=== PATIENT | female | born 1940 | race Caucasian/White ===

== ENCOUNTER 2017-10-22 12:11 | Inpatient (IN) | payer MEDICARE, BC ==
[~2017-10-22] VITALS: Ht 160 cm; Wt 98.0 kg
[~2017-10-22 12:11] MED LIST: APIX5TAB3 PO; BUTA1CAP43 PO; ENOX40SY7 SUBCUT; FURO40TA4 PO; LANTUS SQ; LOSA50TA3 PO; METO50TA17 PO; NITR0.4T51 SL; OXYC-615 PO; RANI300T7 PO; VAL5T PO
[2017-10-22] MEDS ORDERED: normal saline 1000ML IV soln IVB ONE (13:00)
[2017-10-22] MEDS ORDERED: ondansetron/PF 4mg/2ml inj IV ONE (13:00)
[2017-10-22 13:08] LABS: BASOPHILS # (AUTO) 0.1 X10'3 (0-0.2); BASOPHILS % (AUTO) 0.8 % (0-1); EOSINOPHILS # (AUTO) 0.3 X10'3 (0-0.9); EOSINOPHILS % (AUTO) 2.9 % (0-6); HEMATOCRIT 41.2 % (35.0-45.0); HEMOGLOBIN 14.1 g/dl (12.0-16.0); LYMPHOCYTES # (AUTO) 3.1 X10'3 (1.1-4.8); LYMPHOCYTES % (AUTO) 27.9 % (21-51); MEAN CORPUSCULAR HEMOGLOBIN 28.2 PG (27.0-31.0); MEAN CORPUSCULAR HGB CONC 34.3 % (33.0-36.5); MEAN CORPUSCULAR VOLUME 82.4 FL (78-98); MEAN PLATELET VOLUME 7.7 FL (7.4-10.4); MONOCYTES # (AUTO) 0.6 X10'3 (0-0.9); MONOCYTES % (AUTO) 5.7 % (2-12); NEUTROPHILS # (AUTO) 6.9 X10'3 (1.8-7.7); NEUTROPHILS % (AUTO) 62.7 % (42-75); PLATELET COUNT 227 X10'3 (140-440); RED BLOOD COUNT 5.01 X10'6 (4.20-5.60); RED CELL DISTRIBUTION WIDTH 15.1 % (11.5-14.5)
[2017-10-22 13:18] LABS: INR 1.1 INR; PROTHROMBIN TIME 11.4 SECONDS (9.0-12.0)
[2017-10-22 13:26] LABS: ALANINE AMINOTRANSFERASE 34 U/L (12-78); ALBUMIN 3.3 G/DL (3.4-5.0); ALBUMIN/GLOBULIN RATIO 0.8 (1.1-1.5); ALKALINE PHOSPHATASE 142 IU/L (46-116); ANION GAP 9 (8-16); ASPARTATE AMINO TRANSFERASE 21 U/L (10-37); BILIRUBIN,TOTAL 0.5 MG/DL (0.1-1.0); BLOOD UREA NITROGEN 14 MG/DL (7-18); BUN/CREATININE RATIO 15.1 (6.6-38.0); CALCIUM 9.1 MG/DL (8.5-10.1); CHLORIDE 104 MMOL/L (99-107); CREATININE 0.93 MG/DL (0.40-0.90); GLUCOSE 115 MG/DL (70-104); SODIUM 141 MMOL/L (135-145); TOTAL CARBON DIOXIDE 28.2 MMOL/L (24-32); TOTAL PROTEIN 7.4 G/DL (6.4-8.2); eGFR 58 ML/MIN
[2017-10-22] MEDS ORDERED: potassium Cl 40MEQ/NS 500ml 500 ML IV PRN ×2 (14:45)
[2017-10-22] MEDS ORDERED: ondansetron/PF 4mg/2ml inj IV PRN (14:45)
[2017-10-22] MEDS ORDERED: magnesium 2GM in 50ml NS 50 ML IV PRN (14:45)
[2017-10-22] MEDS ORDERED: ipratropium/albuterol 3ml nebule NEB PRN (14:45)
[2017-10-22] MEDS ORDERED: magnesium 4gm in 100ml NS 100 ML IV PRN (14:45)
[2017-10-22] MEDS ORDERED: metroNIDAZOLE-Flagyl 500mg/NS 100 ML IV STA (14:54)
[2017-10-22] MEDS: normal saline 1000ml 1,000 ML IV SCH (15:22)
[2017-10-22] MEDS ORDERED: dextrose ORAL solution 15 GM/59 ML bottle PO PRN ×2 (16:00)
[2017-10-22] MEDS ORDERED: glucagon, human recombinant 1mg kit SUBCUT PRN (16:00)
[2017-10-22] MEDS ORDERED: insulin Lispro (HumaLOG) vial - multi-dose SQ SCH (16:00)
[2017-10-22] MEDS ORDERED: MESSAGE TO PHARMACY PO ONE (16:00)
[2017-10-22] MEDS ORDERED: dextrose 50%-water 50ml dispensing syringe IV PRN ×2 (16:00)
[2017-10-22] MEDS ORDERED: normal saline 1000ml 1,000 ML IV SCH (16:15)
[2017-10-22] MEDS ORDERED: GABA-532 (17:10)
[2017-10-22] MEDS ORDERED: POTA20TA19 (17:10)
[2017-10-22] MEDS ORDERED: ZAR2.5T PO (17:11)
[2017-10-22] MEDS: diatr meglu/diatrizoate 30ml oral sol.-(3 dose) bottle PO SCH (21:00)
[2017-10-22] MEDS: metoprolol tartrate 50mg tablet PO SCH (21:22)
[2017-10-22] MEDS: apixaban 5mg tablet PO SCH (21:23)
[2017-10-22] MEDS ORDERED: gabapentin 300mg capsule PO ONE (22:00)
[2017-10-22 22:50] LABS: GLUCOSE, URINE NEGATIVE (Neg); KETONES,URINE TRACE mg/dl (Neg); LEUKOCYTE ESTERASE ,URINE NEGATIVE (Neg); NITRITES, URINE NEGATIVE (Neg); OCCULT BLOOD,URINE NEGATIVE (Neg); PH,URINE 5.5 (4.8-8.0); PROTEIN,URINE TRACE mg/dl (Neg); UROBILINOGEN,URINE 0.2 E.U/dL (0.2-1.0)
[2017-10-22 23:05] LABS: UA COLLECTION TYPE CLN CATCH MIDSTREAM
[2017-10-22 23:07] LABS: CLARITY,URINE SLIGHTLY CLOUDY (Clear); COLOR,URINE DARK YELLOW (Yellow)
[2017-10-22 23:08] LABS: BACTERIA,URINE 3+ /HPF (Neg); MUCUS STRANDS FEW /LPF (Neg); RBC,URINE 0-2 /HPF (0-2); SQUAMOUS EPITHELIAL CELL,UR MODERATE /LPF (FEW)
[2017-10-22 23:09] LABS: HYALINE CASTS 0-3 /LPF (NEGATIVE)
[2017-10-22] MEDS ORDERED: insulin glargine (Lantus) pen - multi-dose SQ ONE (23:44)
[2017-10-22] MEDS: insulin glargine (Lantus) pen - multi-dose SQ SCH (23:53)
[2017-10-23] MEDS: normal saline 1000ml 1,000 ML IV SCH ×3 (00:44→18:32)
[2017-10-23 06:34] LABS: BASOPHILS % (AUTO) 0.5 % (0-1); EOSINOPHILS # (AUTO) 0.4 X10'3 (0-0.9); EOSINOPHILS % (AUTO) 5.8 % (0-6); HEMATOCRIT 35.3 % (35.0-45.0); HEMOGLOBIN 12.1 g/dl (12.0-16.0); LYMPHOCYTES # (AUTO) 2.1 X10'3 (1.1-4.8); LYMPHOCYTES % (AUTO) 29.5 % (21-51); MEAN CORPUSCULAR HEMOGLOBIN 28.2 PG (27.0-31.0); MEAN CORPUSCULAR HGB CONC 34.4 % (33.0-36.5); MEAN PLATELET VOLUME 7.2 FL (7.4-10.4); MONOCYTES # (AUTO) 0.5 X10'3 (0-0.9); MONOCYTES % (AUTO) 7.1 % (2-12); NEUTROPHILS % (AUTO) 57.1 % (42-75); PLATELET COUNT 188 X10'3 (140-440); RED CELL DISTRIBUTION WIDTH 15.1 % (11.5-14.5)
[2017-10-23 06:51] LABS: ALANINE AMINOTRANSFERASE 28 U/L (12-78); ALBUMIN 2.6 G/DL (3.4-5.0); ALBUMIN/GLOBULIN RATIO 0.8 (1.1-1.5); ALKALINE PHOSPHATASE 111 IU/L (46-116); ANION GAP 8 (8-16); ASPARTATE AMINO TRANSFERASE 15 U/L (10-37); BILIRUBIN,TOTAL 0.4 MG/DL (0.1-1.0); BLOOD UREA NITROGEN 14 MG/DL (7-18); BUN/CREATININE RATIO 17.9 (6.6-38.0); CALCIUM 7.9 MG/DL (8.5-10.1); CHLORIDE 109 MMOL/L (99-107); CHOL/HDL RATIO 3.2 (0.00-4.99); CHOLESTEROL 120 MG/DL (0-200); CREATININE 0.78 MG/DL (0.40-0.90); GLUCOSE 91 MG/DL (70-104); HDL CHOLESTEROL 38 MG/DL (35-60); LDL CHOLESTEROL 66 MG/DL (50-100); MAGNESIUM 1.7 MG/DL (1.5-2.4); POTASSIUM 3.3 MMOL/L (3.5-5.1); SODIUM 143 MMOL/L (135-145); TRIGLYCERIDES 75 MG/DL (20-135); eGFR 71 ML/MIN
[2017-10-23] MEDS: diatr meglu/diatrizoate 30ml oral sol.-(3 dose) bottle PO SCH (07:00)
[2017-10-23] MEDS: enoxaparin 40mg/0.4ml syringe SQ SCH (07:29)
[2017-10-23] MEDS: furosemide 40mg tablet PO SCH (08:00)
[2017-10-23] MEDS: apixaban 5mg tablet PO SCH ×2 (08:03→20:16)
[2017-10-23] MEDS: metoprolol tartrate 50mg tablet PO SCH ×2 (08:03→20:16)
[2017-10-23] MEDS: K and/or MAG REPLACEMENT MC SCH (08:58)
[2017-10-23] MEDS ORDERED: diazepam 5mg tablet PO PRN (10:00)
[2017-10-23] MEDS ORDERED: iohexol 300mg/ml 100ml inj. ONE (10:03)
[2017-10-23 11:53] VITALS: BP 106/52
[2017-10-23] MEDS ORDERED: butalbital/acetaminophen/caffeine (Fioricet) tablet PO PRN (12:00)
[2017-10-23 20:00] VITALS: BP 128/70
[2017-10-23] MEDS: insulin glargine (Lantus) pen - multi-dose SQ SCH (20:22)
[2017-10-23] MEDS ORDERED: insulin glargine (Lantus) pen - multi-dose SQ SCH (21:00)
[2017-10-23] MEDS ORDERED: gabapentin 300mg capsule PO SCH (23:06)
[2017-10-24] VITALS: BP 141/71
[2017-10-24] MEDS: normal saline 1000ml 1,000 ML IV SCH (03:45)
[2017-10-24 07:42] VITALS: BP 126/69
[2017-10-24] MEDS ORDERED: metolazone 2.5mg tablet PO SCH (08:00)
[2017-10-24] MEDS ORDERED: losartan 50mg tablet PO SCH (08:00)
[2017-10-24] MEDS: furosemide 40mg tablet PO SCH (08:00)
[2017-10-24] MEDS: K and/or MAG REPLACEMENT MC SCH (08:00)
[2017-10-24] MEDS: enoxaparin 40mg/0.4ml syringe SQ SCH (08:00)
[2017-10-24] MEDS: apixaban 5mg tablet PO SCH (08:25)
[2017-10-24] MEDS: metoprolol tartrate 50mg tablet PO SCH (08:25)
[2017-10-24 09:01] LABS: BASOPHILS % (AUTO) 0.4 % (0-1); EOSINOPHILS # (AUTO) 0.3 X10'3 (0-0.9); EOSINOPHILS % (AUTO) 4.4 % (0-6); HEMATOCRIT 35.7 % (35.0-45.0); HEMOGLOBIN 12.2 g/dl (12.0-16.0); LYMPHOCYTES # (AUTO) 2.2 X10'3 (1.1-4.8); LYMPHOCYTES % (AUTO) 30.5 % (21-51); MEAN CORPUSCULAR HEMOGLOBIN 28.1 PG (27.0-31.0); MEAN CORPUSCULAR HGB CONC 34.1 % (33.0-36.5); MEAN CORPUSCULAR VOLUME 82.4 FL (78-98); MEAN PLATELET VOLUME 7.6 FL (7.4-10.4); MONOCYTES # (AUTO) 0.5 X10'3 (0-0.9); MONOCYTES % (AUTO) 6.4 % (2-12); NEUTROPHILS # (AUTO) 4.2 X10'3 (1.8-7.7); NEUTROPHILS % (AUTO) 58.3 % (42-75); PLATELET COUNT 206 X10'3 (140-440); RED BLOOD COUNT 4.34 X10'6 (4.20-5.60); RED CELL DISTRIBUTION WIDTH 15.3 % (11.5-14.5); WHITE BLOOD COUNT 7.3 X10'3 (4.5-11.0)
[2017-10-24 09:16] LABS: ALANINE AMINOTRANSFERASE 45 U/L (12-78); ALBUMIN 2.8 G/DL (3.4-5.0); ALBUMIN/GLOBULIN RATIO 0.8 (1.1-1.5); ALKALINE PHOSPHATASE 173 IU/L (46-116); ANION GAP 9 (8-16); ASPARTATE AMINO TRANSFERASE 34 U/L (10-37); BILIRUBIN,TOTAL 0.4 MG/DL (0.1-1.0); BLOOD UREA NITROGEN 13 MG/DL (7-18); BUN/CREATININE RATIO 16.7 (6.6-38.0); CALCIUM 8.1 MG/DL (8.5-10.1); CHLORIDE 107 MMOL/L (99-107); CREATININE 0.78 MG/DL (0.40-0.90); GLUCOSE 178 MG/DL (70-104); MAGNESIUM 1.6 MG/DL (1.5-2.4); POTASSIUM 3.9 MMOL/L (3.5-5.1); SODIUM 141 MMOL/L (135-145); TOTAL CARBON DIOXIDE 24.7 MMOL/L (24-32); TOTAL PROTEIN 6.5 G/DL (6.4-8.2); eGFR 71 ML/MIN
== END 2017-10-24 13:20 | disposition home or self-care (01) | DRG 392 ==
LOC: ER 12:11 → ED HOLD 14:44 → EDBEDREQ 10-23 07:00 → MED 3N 10-23 11:46
PROVIDERS: ADMIT Family Medicine; ATTEND Family Medicine
DX: A08.4 Viral intestinal infection, unspecified (principal); I48.2 Chronic atrial fibrillation; Z86.74 Personal history of sudden cardiac arrest; E11.9 Type 2 diabetes mellitus without complications; I10 Essential (primary) hypertension; E78.5 Hyperlipidemia, unspecified; J44.9 Chronic obstructive pulmonary disease, unspecified; K42.9 Umbilical hernia without obstruction or gangrene; K57.30 Diverticulosis of large intestine without perforation or abscess without bleeding; Z90.49 Acquired absence of other specified parts of digestive tract; Z90.710 Acquired absence of both cervix and uterus; Z95.0 Presence of cardiac pacemaker; Z88.6 Allergy status to analgesic agent; Z88.1 Allergy status to other antibiotic agents; Z88.5 Allergy status to narcotic agent; Z88.0 Allergy status to penicillin; Z88.2 Allergy status to sulfonamides; Z88.8 Allergy status to other drugs, medicaments and biological substances; Z79.01 Long term (current) use of anticoagulants; Z79.899 Other long term (current) drug therapy; Z85.3 Personal history of malignant neoplasm of breast; Z86.711 Personal history of pulmonary embolism; Z82.3 Family history of stroke; Z83.3 Family history of diabetes mellitus
CPT/HCPCS: 36415; 74176; 74177; 80053; 80061; 81001; 82272; 82948; 83036; 83735; 85025; 85610; 87045; 87046; 87070; 87088; 87324; 87449; 89055; 94667; 94760; 96360; 99285; A6449; J1650; J1815; J3480; J3490; J7030; Q9963; Q9967

== ENCOUNTER 2021-06-18 11:50 | Inpatient (IN) | payer MEDICARE, BC ==
[~2021-06-18] VITALS: Ht 160 cm; Wt 92.5 kg
[~2021-06-18 11:50] MED LIST changes: +DIAZ5TAB22 PO; -ENOX40SY7 SUBCUT; -FURO40TA4 PO; +GABA-532 PO; -NITR0.4T51 SL; -OXYC-615 PO; +POTA-207; -RANI300T7 PO; -VAL5T PO; +ZAR2.5T PO
[2021-06-18 12:59] LABS: BASOPHILS # (AUTO) 0.1 X10'3 (0-0.2); BASOPHILS % (AUTO) 1.1 % (0-1); EOSINOPHILS # (AUTO) 0.4 X10'3 (0-0.9); EOSINOPHILS % (AUTO) 5.3 % (0-6); HEMOGLOBIN 14.3 g/dl (12.0-16.0); LYMPHOCYTES # (AUTO) 2.3 X10'3 (1.1-4.8); LYMPHOCYTES % (AUTO) 30.3 % (21-51); MEAN CORPUSCULAR HEMOGLOBIN 29.1 PG (27.0-31.0); MEAN CORPUSCULAR VOLUME 85.7 FL (78-98); MEAN PLATELET VOLUME 7.3 FL (7.4-10.4); MONOCYTES # (AUTO) 0.7 X10'3 (0-0.9); MONOCYTES % (AUTO) 8.8 % (2-12); NEUTROPHILS # (AUTO) 4.2 X10'3 (1.8-7.7); NEUTROPHILS % (AUTO) 54.5 % (42-75); PLATELET COUNT 220 X10'3 (140-440); RED CELL DISTRIBUTION WIDTH 15.2 % (11.5-14.5); WHITE BLOOD COUNT 7.7 X10'3 (4.5-11.0)
[2021-06-18 13:28] LABS: PARTIAL THROMBOPLASTIN TIME 30 SECONDS (22-32)
[2021-06-18 13:30] LABS: ALANINE AMINOTRANSFERASE 19 U/L (12-78); ALBUMIN 3.7 G/DL (3.4-5.0); ALBUMIN/GLOBULIN RATIO 0.8 (1.1-1.5); ALKALINE PHOSPHATASE 136 IU/L (46-116); ANION GAP 8 (8-16); ASPARTATE AMINO TRANSFERASE 25 U/L (10-37); BILIRUBIN,TOTAL 0.7 MG/DL (0.1-1.0); BLOOD UREA NITROGEN 17 MG/DL (7-18); BUN/CREATININE RATIO 17.5 (6.6-38.0); CALCIUM 9.2 MG/DL (8.5-10.1); CHLORIDE 103 MMOL/L (99-107); CREATININE 0.97 MG/DL (0.40-0.90); GLUCOSE 173 MG/DL (70-104); POTASSIUM 4.2 MMOL/L (3.5-5.1); SODIUM 139 MMOL/L (135-145); TOTAL PROTEIN 8.4 G/DL (6.4-8.2); eGFR 55 ML/MIN
[2021-06-18 13:37] LABS: CREATINE KINASE 94 U/L (26-192); MAGNESIUM 2.1 MG/DL (1.5-2.4)
[2021-06-18] MEDS ORDERED: acetaminophen 325mg tablet PO ONE (14:25)
[2021-06-18] MEDS ORDERED: magnesium 2GM in 50ml NS 50 ML IV PRN (14:55)
[2021-06-18] MEDS ORDERED: magnesium hydroxide 30ml (MOM) UD suspension PO PRN (14:55)
[2021-06-18] MEDS ORDERED: dextrose 50%-water 50ml dispensing syringe IV PRN ×2 (14:55)
[2021-06-18] MEDS ORDERED: magnesium Cl slow-release 64mg tablet PO PRN (14:55)
[2021-06-18] MEDS ORDERED: diphenhydrAMINE 25mg capsule PO PRN (14:55)
[2021-06-18] MEDS ORDERED: MESSAGE TO PHARMACY PO ONE (14:55)
[2021-06-18] MEDS ORDERED: potassium Cl 20 mEq SR tablet PO PRN ×2 (14:55)
[2021-06-18] MEDS ORDERED: acetaminophen 325mg tablet PO PRN ×2 (14:55)
[2021-06-18] MEDS ORDERED: bisacodyl 10mg suppository rectal RC PRN (14:55)
[2021-06-18] MEDS ORDERED: acetaminophen 650mg rectal suppository RC PRN (14:55)
[2021-06-18] MEDS ORDERED: PERFLUTREN PROTEIN-A MICROSPHR (Optison) 0.22 MG/ML 3ML VIAL IV PRN (14:55)
[2021-06-18] MEDS ORDERED: glucagon, human recombinant 1mg kit SUBCUT PRN (14:55)
[2021-06-18] MEDS ORDERED: potassium Cl 40MEQ/1/2NS 520ml 520 ML IV PRN ×2 (14:55)
[2021-06-18] MEDS ORDERED: dextrose ORAL solution 15 GM/59 ML bottle PO PRN ×2 (14:55)
[2021-06-18] MEDS ORDERED: mag hydrox/Alum hydrox/simeth 30ml oral suspension PO PRN (14:55)
[2021-06-18] MEDS ORDERED: magnesium 4gm in 100ml NS 100 ML IV PRN (14:55)
[2021-06-18] MEDS ORDERED: ondansetron/PF 4mg/2ml inj IV PRN (14:55)
[2021-06-18 15:10] LABS: HEMOGLOBIN A1C 7.9 % (4.5-6.2)
--- NOTE | 2021-06-18 15:18 | NUR ---
TELE NEURO EVAL COMPLETE AWAITING REPORT.
[2021-06-18] MEDS ORDERED: ATRNS BOTHNARES (15:38)
[2021-06-18] MEDS ORDERED: BUTA1TAB54 PO (15:38)
[2021-06-18] MEDS ORDERED: ipratropium/albuterol 3ml nebule NEB PRN (16:25)
--- NOTE | 2021-06-18 16:30 | NUR ---
VASCULAR AT BEDSIDE
--- NOTE | 2021-06-18 16:31 | NUR ---
NO EEG SAFETY INVESTIGATOR TONIGHT, WILL DO TOMORROW.
[2021-06-18] MEDS: normal saline 1000ml 1,000 ML IV SCH (17:15)
[2021-06-18 17:23] LABS: CLARITY,URINE SLIGHTLY CLOUDY (Clear); COLOR,URINE YELLOW (Yellow); UA COLLECTION TYPE CLN CATCH MIDSTREAM
[2021-06-18 17:24] LABS: GLUCOSE, URINE NEGATIVE (Neg); KETONES,URINE NEGATIVE (Neg); LEUKOCYTE ESTERASE ,URINE NEGATIVE (Neg); NITRITES, URINE NEGATIVE (Neg); OCCULT BLOOD,URINE NEGATIVE (Neg); PROTEIN,URINE NEGATIVE (Neg); UROBILINOGEN,URINE 0.2 E.U/dL (0.2-1.0)
[2021-06-18 17:28] LABS: WBC,URINE 0-4 /HPF (0-4)
[2021-06-18 17:29] LABS: BACTERIA,URINE 4+ /HPF (Neg); MUCUS STRANDS FEW /LPF (Neg); RBC,URINE 0-2 /HPF (0-2); SQUAMOUS EPITHELIAL CELL,UR MANY /LPF (FEW)
[2021-06-18] MEDS: K and/or MAG REPLACEMENT MC SCH (18:31)
[2021-06-18] MEDS: insulin glargine (Lantus) pen - multi-dose SQ SCH (21:00)
[2021-06-18] MEDS: docusate sod 100mg capsule PO SCH (22:14)
[2021-06-18] MEDS: gabapentin 300mg capsule PO SCH (22:15)
[2021-06-18] MEDS: apixaban 5mg tablet PO SCH (22:15)
[2021-06-18] MEDS: metoprolol tartrate 50mg tablet PO SCH (22:17)
[2021-06-18] MEDS ORDERED: HYDROmorphone inj. 0.5 MG/0.5 ML DISP.SYRIN IV PRN (22:25)
[2021-06-18] MEDS: butalbital/acetaminophen/caffeine (Fioricet) tablet PO PRN (22:51)
[2021-06-19] MEDS: normal saline 1000ml 1,000 ML IV SCH ×2 (04:20→13:49)
[2021-06-19 05:47] LABS: BASOPHILS # (AUTO) 0.1 X10'3 (0-0.2); EOSINOPHILS # (AUTO) 0.4 X10'3 (0-0.9); EOSINOPHILS % (AUTO) 6.4 % (0-6); HEMATOCRIT 38.6 % (35.0-45.0); LYMPHOCYTES # (AUTO) 1.9 X10'3 (1.1-4.8); MEAN CORPUSCULAR HEMOGLOBIN 29.1 PG (27.0-31.0); MEAN CORPUSCULAR HGB CONC 33.8 g/dL (33.0-36.5); MEAN CORPUSCULAR VOLUME 86.1 FL (78-98); MEAN PLATELET VOLUME 7.5 FL (7.4-10.4); MONOCYTES # (AUTO) 0.6 X10'3 (0-0.9); MONOCYTES % (AUTO) 9.7 % (2-12); NEUTROPHILS # (AUTO) 3.6 X10'3 (1.8-7.7); NEUTROPHILS % (AUTO) 53.9 % (42-75); PLATELET COUNT 198 X10'3 (140-440); RED BLOOD COUNT 4.49 X10'6 (4.20-5.60); RED CELL DISTRIBUTION WIDTH 14.8 % (11.5-14.5); WHITE BLOOD COUNT 6.6 X10'3 (4.5-11.0)
[2021-06-19 06:43] LABS: ALANINE AMINOTRANSFERASE 14 U/L (12-78); ALBUMIN 3.2 G/DL (3.4-5.0); ALBUMIN/GLOBULIN RATIO 0.8 (1.1-1.5); ALKALINE PHOSPHATASE 122 IU/L (46-116); ANION GAP 9 (8-16); ASPARTATE AMINO TRANSFERASE 23 U/L (10-37); BILIRUBIN,TOTAL 0.6 MG/DL (0.1-1.0); BLOOD UREA NITROGEN 15 MG/DL (7-18); CALCIUM 8.5 MG/DL (8.5-10.1); CHLORIDE 106 MMOL/L (99-107); CREATININE 0.94 MG/DL (0.40-0.90); GLUCOSE 169 MG/DL (70-104); POTASSIUM 4.5 MMOL/L (3.5-5.1); SODIUM 140 MMOL/L (135-145); TOTAL CARBON DIOXIDE 25.4 MMOL/L (24-32); TOTAL PROTEIN 7.1 G/DL (6.4-8.2); eGFR 57 ML/MIN
[2021-06-19 06:45] LABS: CHOL/HDL RATIO 3.9 (0.00-4.99); CHOLESTEROL 145 MG/DL (0-200); HDL CHOLESTEROL 37 MG/DL (35-60); LDL CHOLESTEROL 85 MG/DL (50-100); MAGNESIUM 2.1 MG/DL (1.5-2.4); PHOSPHORUS 3.3 MG/DL (2.3-4.5); TRIGLYCERIDES 77 MG/DL (20-135)
[2021-06-19 08:00] VITALS: BP_SYST 153; BP_SYST 160; BP_DIAS 79; BP_DIAS 86
[2021-06-19] MEDS: docusate sod 100mg capsule PO SCH ×2 (08:00→20:00)
[2021-06-19] MEDS: K and/or MAG REPLACEMENT MC SCH ×2 (08:00→20:00)
--- NOTE | 2021-06-19 08:34 | NUR ---
TRAFFIC CONTROL OPERATOR IS HERE TO PERFORM EEG STUDY. PATIENT ASSISTED TO BSC TO VOID. EXERTIONAL DYSPNEA AND C/O DIZZINESS NOTED WHEN SHE GOT OUT OF BED.
[2021-06-19] MEDS: gabapentin 300mg capsule PO SCH ×3 (09:37→20:31)
[2021-06-19] MEDS: metoprolol tartrate 50mg tablet PO SCH ×2 (09:39→20:31)
[2021-06-19] MEDS: apixaban 5mg tablet PO SCH ×2 (09:40→20:31)
[2021-06-19] MEDS: butalbital/acetaminophen/caffeine (Fioricet) tablet PO PRN ×2 (09:46→16:52)
[2021-06-19 09:50] VITALS: BP 158/68
[2021-06-19] MEDS: insulin Lispro (HumaLOG) vial - multi-dose SQ SCH ×2 (13:53→18:52)
--- NOTE | 2021-06-19 14:23 | NUR ---
Patient refused MRSA swab/screening.
[2021-06-19 15:00] VITALS: BP 153/79
--- NOTE | 2021-06-19 16:10 | NUR ---
PAGER ID: [phone] MESSAGE: [phone] Meeta Dumont. Requesting her Fioricet be Q4H. [facility] Crystal
--- NOTE | 2021-06-19 18:11 | NUR ---
Problems reprioritized. Patient report given, questions answered & plan of care reviewed with Mariya MCCURDY, patient stable at transfer of care.
--- NOTE | 2021-06-19 18:12 | NUR ---
[place] Medication Administration: For this medication-pass time frame, all medication were reviewed, dispensed, administered and documented per hospital policy by Lovely MCCURDY.
--- NOTE | 2021-06-19 18:12 | NUR ---
[place] documentation: I have reviewed and agree with all interventions, assessments performed and documented by Lovely MCCURDY.
--- NOTE | 2021-06-19 18:30 | NUR ---
Patient in room U 3013. I have received report from CALLI Britton and had the opportunity to ask questions and assume patient care with Student Ekaterina. Addendum: 06/20/21 at 0319 by Mariya Palencia RN Amended: Links added.
[2021-06-19 18:45] VITALS: BP 138/67
--- NOTE | 2021-06-19 20:00 | NUR ---
Pt refusing to answer questions at this time. Pt states she is going home tomorrow. States she is upset no one has alked her yet. Explained to pt she fell at home and has syncope PT should amb tomorrow. Pt states "I am always dizzy, thats just me" Pt up to [facility] with [facility]. Addendum: 06/20/21 at 0444 by Mariya Palencia RN Amended: Links added.
[2021-06-19] MEDS: insulin glargine (Lantus) pen - multi-dose SQ SCH (21:57)
[2021-06-19 22:00] VITALS: BP_SYST 69
[2021-06-20] MEDS: butalbital/acetaminophen/caffeine (Fioricet) tablet PO PRN ×3 (00:30→15:31)
[2021-06-20] MEDS: normal saline 1000ml 1,000 ML IV SCH (01:00)
[2021-06-20 02:00] VITALS: BP 130/66
--- NOTE | 2021-06-20 05:50 | NUR ---
Pt refused MRSA swab and labs.
[2021-06-20 06:00] VITALS: BP 140/69
--- NOTE | 2021-06-20 06:25 | NUR ---
Problems reprioritized. Patient report given, questions answered & plan of care reviewed with Reba.
--- NOTE | 2021-06-20 06:30 | NUR ---
Student documentation: I have reviewed and agree with all interventions, assessments performed and documented by ANASTASIA. Addendum: 06/20/21 at 0651 by Mariya Palencia RN Amended: Links added.
--- NOTE | 2021-06-20 06:34 | NUR ---
Patient in room PCU 3013. I have received report from Janelle MCCURDY and Ekaterina Coats RN and had the opportunity to ask questions and assume patient care.
--- NOTE | 2021-06-20 07:37 | NUR ---
Paged MRI regarding ETA.
[2021-06-20] MEDS: docusate sod 100mg capsule PO SCH (08:00)
[2021-06-20] MEDS: apixaban 5mg tablet PO SCH (08:11)
[2021-06-20] MEDS: metoprolol tartrate 50mg tablet PO SCH (08:11)
[2021-06-20] MEDS: gabapentin 300mg capsule PO SCH ×2 (08:12→13:15)
--- NOTE | 2021-06-20 09:06 | NUR ---
Diabetes consult: Noted A1C 7.9 fairly controlled and appropriate for age. DM education not indicated at this time, will continue to monitor. Addendum: 06/20/21 at [address] Amended: Links added.
[2021-06-20] MEDS ORDERED: butalbital/acetaminophen/caffeine (Fioricet) tablet PO ONE (09:30)
--- NOTE | 2021-06-20 09:35 | NUR ---
Verbal order from Dr. Adams for one time dose of butalbital/acetaminophen/caffeine.
--- NOTE | 2021-06-20 10:40 | NUR ---
Paged Dr. Adams regarding MRI. PAGER ID: [phone] MESSAGE: [phone] Meeta Dumont. MRI called and said they cannot do the MRI until tomorrow morning at 9am. They mentioned scheduling outpatient. [facility] 1256.
[2021-06-20 11:00] VITALS: BP 147/80
--- NOTE | 2021-06-20 12:59 | NUR ---
REVIEW AND AGREE WITH AM ASSESSMENT BY SENA MCCURDY.
[2021-06-20] MEDS: insulin Lispro (HumaLOG) vial - multi-dose SQ SCH (14:05)
--- NOTE | 2021-06-20 14:55 | NUR ---
PAGER ID: [phone] MESSAGE: [email or web address], ARE YOU PLANNING ON DISCHARGING 3013B, SHE IS VERY ADAMENT THAT SHE IS GOING AT 1630 WHEN HER RIDE IS COMING. THANK YOU.
--- NOTE | 2021-06-20 16:46 | NUR ---
Patient is stable for discharge per Dr. Adams orders. All discharge instructions reviewed with patient and all questions answered. PIV discontinued, cannula intact. Telemetry discontinued. Belongings collected and sent with patient. Patient wheeled to lobby via nursing staff and picked up by patients family member.
== END 2021-06-20 16:22 | disposition home health service (06) | DRG 312 ==
LOC: ER 11:50 → ED HOLD 14:57 → EDBEDREQ 06-19 08:49 → PCU 3S 06-19 09:56
PROVIDERS: ADMIT Family Medicine; ATTEND Family Medicine
PROC: 4A10X4Z Monitoring of Central Nervous Electrical Activity, External Approach (ICD-10-PCS; principal; 2021-06-19)
DX: R55 Syncope and collapse (principal); E66.01 Morbid (severe) obesity due to excess calories; E78.00 Pure hypercholesterolemia, unspecified; G89.4 Chronic pain syndrome; I11.0 Hypertensive heart disease with heart failure; I48.91 Unspecified atrial fibrillation; I50.9 Heart failure, unspecified; Z96.651 Presence of right artificial knee joint; I87.2 Venous insufficiency (chronic) (peripheral); W18.11XA Fall from or off toilet without subsequent striking against object, initial encounter; Z20.822 Contact with and (suspected) exposure to COVID-19; J44.9 Chronic obstructive pulmonary disease, unspecified; Z66 Do not resuscitate; M25.511 Pain in right shoulder; E11.42 Type 2 diabetes mellitus with diabetic polyneuropathy; Z60.2 Problems related to living alone; Z79.01 Long term (current) use of anticoagulants; Z80.8 Family history of malignant neoplasm of other organs or systems; Z85.3 Personal history of malignant neoplasm of breast; Z68.36 Body mass index [BMI] 36.0-36.9, adult; Z86.711 Personal history of pulmonary embolism; Z90.49 Acquired absence of other specified parts of digestive tract; Z90.710 Acquired absence of both cervix and uterus; Z95.0 Presence of cardiac pacemaker; Y93.89 Activity, other specified; Y92.091 Bathroom in other non-institutional residence as the place of occurrence of the external cause; Y99.8 Other external cause status; Z88.5 Allergy status to narcotic agent; Z88.0 Allergy status to penicillin; Z88.2 Allergy status to sulfonamides; Z88.8 Allergy status to other drugs, medicaments and biological substances; Z82.3 Family history of stroke; Z83.3 Family history of diabetes mellitus; Z99.81 Dependence on supplemental oxygen; Z81.1 Family history of alcohol abuse and dependence
CPT/HCPCS: 36415; 70450; 71045; 71250; 72070; 72125; 73030; 80053; 80061; 81001; 82550; 82948; 83036; 83735; 83880; 84100; 84145; 84439; 84443; 84484; 85025; 85610; 85651; 85730; 87635; 92508; 92616; 93005; 93306; 93880; 94760; 95816; 97116; 97161; 97530; 99285; G0378; J1815; J7030

== ENCOUNTER 2022-12-14 14:47 | Emergency (ER) | payer MEDICARE, BC ==
[~2022-12-14 14:47] MED LIST changes: +ATRNS BOTHNARES; -BUTA1CAP43 PO; +BUTA1TAB54 PO; -DIAZ5TAB22 PO; -LOSA50TA3 PO; -POTA-207; -ZAR2.5T PO
[2022-12-14] MEDS ORDERED: oxyCODONE/APAP 10/325mg tablet PO ONE (15:10)
--- NOTE | 2022-12-14 15:20 | NUR ---
pT TO cT SCAN
[2022-12-14] MEDS ORDERED: OXYC-145 PO (17:33)
[2022-12-14 17:57] VITALS: BP 144/66
== END 2022-12-14 18:02 | disposition home or self-care (01) ==
LOC: ER 14:48
DX: S42.202A Unspecified fracture of upper end of left humerus, initial encounter for closed fracture (principal); R41.82 Altered mental status, unspecified; E78.00 Pure hypercholesterolemia, unspecified; I10 Essential (primary) hypertension; J44.9 Chronic obstructive pulmonary disease, unspecified; E11.9 Type 2 diabetes mellitus without complications; Z88.0 Allergy status to penicillin; Z88.1 Allergy status to other antibiotic agents; Z88.2 Allergy status to sulfonamides; Z90.49 Acquired absence of other specified parts of digestive tract; W01.0XXA Fall on same level from slipping, tripping and stumbling without subsequent striking against object, initial encounter; Y93.89 Activity, other specified; Y92.89 Other specified places as the place of occurrence of the external cause; Y99.8 Other external cause status
CPT/HCPCS: 29105; 70450; 72125; 73030; 73552; 99284

== ENCOUNTER 2023-03-21 01:38 | Emergency (ER) | payer MEDICARE, BC ==
[~2023-03-21] VITALS: Ht 160 cm; Wt 68.2 kg
[~2023-03-21 01:38] MED LIST changes: +ONDA8TAB13 SL; +PER5325T PO
[2023-03-21 01:40] VITALS: TEMP 97.6
[2023-03-21 02:24] LABS: BASOPHILS # (AUTO) 0.1 X10'3 (0-0.2); BASOPHILS % (AUTO) 0.6 % (0-1); EOSINOPHILS # (AUTO) 0.5 X10'3 (0-0.9); EOSINOPHILS % (AUTO) 5.2 % (0-6); HEMATOCRIT 29.7 % (35.0-45.0); HEMOGLOBIN 9.8 g/dl (12.0-16.0); LYMPHOCYTES # (AUTO) 3.2 X10'3 (1.1-4.8); LYMPHOCYTES % (AUTO) 33.9 % (21-51); MEAN CORPUSCULAR HEMOGLOBIN 27.9 PG (27.0-31.0); MEAN CORPUSCULAR HGB CONC 32.9 g/dL (33.0-36.5); MEAN CORPUSCULAR VOLUME 84.8 FL (78-98); MEAN PLATELET VOLUME 6.9 FL (7.4-10.4); MONOCYTES # (AUTO) 0.5 X10'3 (0-0.9); MONOCYTES % (AUTO) 5.7 % (2-12); NEUTROPHILS # (AUTO) 5.2 X10'3 (1.8-7.7); NEUTROPHILS % (AUTO) 54.6 % (42-75); PLATELET COUNT 301 X10'3 (140-440); RED CELL DISTRIBUTION WIDTH 15.5 % (11.5-14.5); WHITE BLOOD COUNT 9.5 X10'3 (4.5-11.0)
[2023-03-21 02:37] LABS: ALANINE AMINOTRANSFERASE 10 U/L (12-78); ALBUMIN 2.5 G/DL (3.4-5.0); ALBUMIN/GLOBULIN RATIO 0.5 (1.1-1.5); ALKALINE PHOSPHATASE 86 IU/L (46-116); ANION GAP 6 (8-16); ASPARTATE AMINO TRANSFERASE 22 U/L (10-37); BILIRUBIN,TOTAL 0.3 MG/DL (0.1-1.0); BLOOD UREA NITROGEN 22 MG/DL (7-18); CHLORIDE 99 MMOL/L (99-107); CREATININE 0.88 MG/DL (0.40-0.90); GLUCOSE 82 MG/DL (70-104); LIPASE 132 U/L (73-393); POTASSIUM 3.5 MMOL/L (3.5-5.1); SODIUM 138 MMOL/L (135-145); TOTAL PROTEIN 7.1 G/DL (6.4-8.2); eCRCL 39 ML/MIN; eGFR 61 ML/MIN
[2023-03-21 03:24] LABS: BILIRUBIN,URINE NEGATIVE (Neg); CLARITY,URINE CLOUDY (Clear); GLUCOSE, URINE NEGATIVE (Neg); KETONES,URINE NEGATIVE (Neg); LEUKOCYTE ESTERASE ,URINE SMALL (Neg); NITRITES, URINE NEGATIVE (Neg); OCCULT BLOOD,URINE LARGE (Neg); PH,URINE 5.5 (4.8-8.0); PROTEIN,URINE NEGATIVE (Neg); UROBILINOGEN,URINE 0.2 E.U/dL (0.2-1.0)
[2023-03-21 03:35] LABS: UA COLLECTION TYPE FOLEY CATH
[2023-03-21 03:36] LABS: COLOR,URINE AMBER (Yellow); MUCUS STRANDS FEW /LPF (Neg); RBC,URINE TNTC /HPF (0-2); SQUAMOUS EPITHELIAL CELL,UR FEW /LPF (FEW)
[2023-03-21 03:37] LABS: BACTERIA,URINE 1+ /HPF (Neg); TRANSITIONAL EPI CELLS,URINE FEW /HPF; WBC CLUMPS,URINE FEW /HPF (NEGATIVE)
--- NOTE | 2023-03-21 03:43 | NUR ---
PT COMPLAINS OF "COLD SWEATS" AND STATES THIS IS USUALLY A WARNING THAT HER BLOOD SUGAR IS LOW. ACCUCHECK PERFORMED AT BEDSIDE, BG 40. DR MCCARTY NOTIFIED AND ORDERS RECEIVED TO GIVE PT 6 OZ JUICE AND RECHECK BG IN 15 MINUTES. ORANGE JUICE AND SALTINES PROVIDED TO PT. PT IS ALERT AND ORIENTED, ABLE TO FOLLOW COMMANDS
--- NOTE | 2023-03-21 04:07 | NUR ---
UPON RECHECK PT BG 64. ADDITIONAL JUICE PROVIDED ALONG WITH TURKEY SANDWICH. PT EDUCATED TO NEED FOR IV PLACEMENT PT EXTREMELY RELUCTANT TO PERMIT THIS. WILL RECHECK BG IN 15 MINUTES
[2023-03-21] MEDS ORDERED: CEPH250T PO (04:14)
[2023-03-21] MEDS ORDERED: ondansetron 4mg rapidly disintigrating tab PO ONE (04:15)
[2023-03-21] MEDS ORDERED: cephalexin 250mg capsule PO ONE (04:15)
--- NOTE | 2023-03-21 04:36 | NUR ---
THIRD RECHECK BG 68 AFTER TWO SERVINGS OF JUICE, CRACKERS, AND HALF OF A TURKEY SANDWICH. MD NOTIFIED AND ORDERS RECEIVED FOR AMP OF D50
[2023-03-21] MEDS ORDERED: dextrose 50%-water 50ml dispensing syringe IV ONE (04:40)
[2023-03-21 04:46] VITALS: BP 123/54; PULSE 77; RESP 16; O2SAT 100
--- NOTE | 2023-03-21 05:18 | NUR ---
CIRA [facility] NOTIFIED THAT PT IS BEING DISCHARGED, BG STABLE AT 130. LUISITO CARGO TO BE CONTACTED PER FACILITY
== END 2023-03-21 05:53 | disposition home or self-care (01) ==
LOC: ER 01:39
DX: N39.0 Urinary tract infection, site not specified (principal)
CPT/HCPCS: 36415; 80053; 81001; 82948; 83690; 85025; 87088; 96374; 99284; J3490; 96372; A4314